=== PATIENT | female | born 1940 | race Caucasian/White ===

== ENCOUNTER → 2019-04-05 | Outpatient (CLI) | payer MEDICARE ==
[~2019-04-05] MED LIST: ACET325 PO; ALLO100 PO; AMAN100 PO; ASPI81CH PO; ASPI81EC PO; BROVANA INH; Brovana15 MCG/2 M NEB; CEPH500 PO; FISH1000 PO; FLUZONE IM; FURO40 PO; INSULANI SC; INSULANPEN SC; LISI5 PO; MELO7.5 PO; METF500 PO; METF500C PO; MORP30ER PO; NITR100CA PO; NORT25 PO; OXYACE5T PO; PARO20 PO; PIOG15 PO; POTCIT5 PO; PREG50 PO; PREG75 PO; ROPI1 PO; TEMA15 PO; TIOT18 INH; TRAZ150T57; TRIA80TC TOP; VERA240ER PO; VERA240ERB PO
[2019-04-05 16:09] LABS: Percent Saturation 8.4 % (15.0-50.0)
== END | disposition home or self-care (01) ==
LOC: LAB 10:25 → LAB SHORT 10:25
PROVIDERS: Internal Medicine Hematology & Oncology
DX: D50.9 Iron deficiency anemia, unspecified (principal)
CPT/HCPCS: 82728; 83540; 83550

== ENCOUNTER → 2020-07-01 | Outpatient (CLI) | payer MEDICARE ==
[2020-07-01 14:56] LABS: BASOPHILS ABSOLUTE AUTO 0.09 K/mm3 (0.00-0.23); BASOPHILS PERCENT AUTO 1 % (0-2); EOSINOPHILS ABSOLUTE AUTO 0.26 K/mm3 (0.00-0.68); EOSINOPHILS PERCENT AUTO 3 % (0-6); IMMATURE GRAN ABSOLUTE AUTO 0.02 K/mm3 (0.00-0.10); IMMATURE GRAN PERCENT AUTO 0 % (0-1); LYMPHOCYTES ABSOLUTE AUTO 2.61 K/mm3 (0.84-5.20); LYMPHOCYTES PERCENT AUTO 25 % (21-46); MONOCYTES ABSOLUTE AUTO 0.54 K/mm3 (0.16-1.47); MONOCYTES PERCENT AUTO 5 % (4-13); Mean Corpuscular HGB 28.8 pg (26.0-34.0); Mean Corpuscular HGB Conc 32.4 g/dL (31.5-36.5); Mean Corpuscular Volume 89 fL (80-100); Mean Platelet Volume 10.5 fL (9.1-12.4); NEUTROPHILS ABSOLUTE AUTO 6.81 K/mm3 (1.96-9.15); NEUTROPHILS PERCENT AUTO 66 % (41-73); Platelet Count 233 K/mm3 (150-400); RDW Coefficient Variation 14.9 % (11.7-14.2); RDW Standard Deviation 47.9 fL (35.1-46.3); Red Blood Cell Count 4.17 M/mm3 (3.80-5.20); White Blood Cell Count 10.33 K/mm3 (4.00-11.30)
[2020-07-01 15:16] LABS: Albumin, Blood 3.7 g/dL (3.4-5.0); Albumin/Globulin Ratio 0.8 (0.8-1.8); Bilirubin, Total 0.3 mg/dL (0.1-1.0); Bun/Creatinine Ratio 10.6 (12.0-20.0); Calcium, Blood 9.4 mg/dL (8.5-10.1); Creatinine, Blood 0.94 mg/dL (0.40-1.00); Free Thyroxine 0.99 ng/dL (0.70-1.60); Globulin, Blood 4.5 g/dL (2.2-4.0); Potassium, Blood 3.5 mmol/L (3.5-5.5); Thyroid Stimulating Hormone 1.395 uIU/mL (0.360-4.800); Total Protein, Blood 8.2 g/dL (6.4-8.2)
== END | disposition home or self-care (01) ==
LOC: LAB EV 14:48 → LAB SHORT 14:48
PROVIDERS: General Practice
DX: R53.81 Other malaise (principal); R60.0 Localized edema
CPT/HCPCS: 80053; 83880; 84439; 84443; 85025

== ENCOUNTER → 2020-10-21 | Outpatient (CLI) | payer MEDICARE ==
[2020-10-27 01:07] LABS: CREATININE, URINE 58 mg/dL (.); METANEPHRINE/CREATININE RATIO 52 ug/g (.); NORMETANEPHRINE/CREAT. RATIO 397 ug/g (.)
== END ==
LOC: LAB SHORT 14:13 → LAB 14:13 → LAB FUT 10-19 16:40
PROVIDERS: Internal Medicine Nephrology
DX: N18.30 Chronic kidney disease, stage 3 unspecified (principal); D63.1 Anemia in chronic kidney disease; N25.81 Secondary hyperparathyroidism of renal origin; E55.9 Vitamin D deficiency, unspecified; R76.9 Abnormal immunological finding in serum, unspecified; R94.5 Abnormal results of liver function studies; R94.6 Abnormal results of thyroid function studies; Z88.8 Allergy status to other drugs, medicaments and biological substances
CPT/HCPCS: 81050; 82570; 83835